=== PATIENT | female | born 1995 | race African-American/Black ===

== ENCOUNTER 2017-12-20 05:58 | Inpatient (IN) | payer MEDICAID ==
[~2017-12-20] VITALS: Ht 162.6 cm; Wt 68.0 kg
[2017-12-20] MEDS ORDERED: DEXT 5%/LR + PITOCIN 20UNITS/L 1,000 ML IV SCH ×2 (06:06→07:54)
[2017-12-20] MEDS ORDERED: METHYLERGONOVINE MALEATE 0.2 MG/ML IM PRN (06:15)
[2017-12-20] MEDS ORDERED: LIDOCAINE HCL 1% 20ML VIAL (Pyxis) INJ INFIL SCH (06:15)
[2017-12-20] MEDS ORDERED: DEXT 5%/LR + PITOCIN 20UNITS/L 1,000 ML IV ONE (06:19)
[2017-12-20] MEDS ORDERED: BUTORPHANOL TARTRATE 2 MG/ML VIAL IV NR (06:45)
[2017-12-20] MEDS ORDERED: LIDOCAINE HCL/PF 1% 10 MG/ML 5ML VIAL ONE (07:18)
[2017-12-20] MEDS ORDERED: NIFEDIPINE 10MG CAPSULE ONE (07:18)
[2017-12-20] MEDS ORDERED: PROPOFOL 200MG/20ML VIAL IV ONE ×3 (07:24→08:01)
[2017-12-20] MEDS ORDERED: OXYTOCIN 10 UNITS/ML 1ML ONE (07:39)
[2017-12-20 07:57] LABS: BASOPHILS % 0.2 % (0.0-2.0); EOSINOPHILS % 0.1 % (0.0-5.0); HEMATOCRIT. 32.4 % (36.0-48.0); HEMOGLOBIN. 10.9 g/dL (12.0-16.0); LYMPHOCYTES % 8.7 % (20.0-50.0); MEAN CORPUSCULAR HEMOGLOBIN 29.6 pg (28.0-32.0); MEAN CORPUSCULAR VOLUME 87.5 fL (81.0-99.0); MEAN PLATELET VOLUME 9.5 fl (7.4-10.4); MONOCYTES % 4.9 % (2.0-8.0); NEUTROPHILS % 86.1 % (40.0-76.0); PLATELET 104 x1000/uL (130-400); RED CELL DISTRIBUTION WIDTH 13.4 % (11.6-14.6)
[2017-12-20 08:00] LABS: CLARITY URINE CLEAR (CLEAR); COLOR URINE YELLOW (YELLOW); KETONES URINE NEGATIVE (NEGATIVE); LEUKOCYTE ESTERASE URINE NEGATIVE (NEGATIVE); NITRITE URINE NEGATIVE (NEGATIVE); OCCULT BLOOD URINE 1+ (NEGATIVE); PH URINE 6.5 (4.5-8.0); PROTEIN URINE NEGATIVE (NEGATIVE); SPECIFIC GRAVITY URINE 1.008 (1.005-1.030)
[2017-12-20] MEDS ORDERED: DIPHENHYDRAMINE 25MG CAPSULE PO PRN (08:00)
[2017-12-20] MEDS ORDERED: RHO(D) IMMUNE GLOBULIN 300 MCG/SYR IM PRN (08:00)
[2017-12-20] MEDS ORDERED: LANOLIN OINT 0.25 GM TUBE TOP PRN (08:00)
[2017-12-20] MEDS ORDERED: HEMORRHOIDAL SUPP PR PRN (08:00)
[2017-12-20] MEDS ORDERED: ACETAMINOPHEN WITH CODEINE 300/30MG TABLET PO PRN (08:00)
[2017-12-20] MEDS ORDERED: BENZOCAINE/LANOLIN/ALOE VERA SPRAY TOP PRN (08:00)
[2017-12-20] MEDS ORDERED: TETANUS, DIPHTHERIA, PERTUSSIS VAC/PF 0.5ML (>7YR OLD) IM ONE (08:00)
[2017-12-20] MEDS ORDERED: GLYCERIN/WITCH HAZEL LEAF MEDICATED PAD TOP PRN (08:00)
[2017-12-20 08:34] LABS: *AMPHETAMINES SCREEN URINE NEGATIVE (NEGATIVE); *BARBITURATES SCREEN URINE NEGATIVE (NEGATIVE); *BENZODIAZEPINES SCREEN URINE NEGATIVE (NEGATIVE); *COCAINE SCREEN URINE NEGATIVE (NEGATIVE)
[2017-12-20 08:35] LABS: CANNABINOID URINE SCREEN NEGATIVE (NEGATIVE); METHADONE URINE SCREEN NEGATIVE (NEGATIVE); OPIATES URINE SCREEN NEGATIVE (NEGATIVE); PHENCYCLIDINE URINE SCREEN NEGATIVE (NEGATIVE)
[2017-12-20 08:56] LABS: INR 0.9; PROTHROMBIN TIME 9.6 sec (9.4-11.6)
[2017-12-20] MEDS ORDERED: BISACODYL 10MG SUPP PR PRN (09:00)
[2017-12-20 10:18] LABS: HEPATITIS B SURFACE ANTIGEN NEGATIVE; RUBELLA IGG 80.3 IU/mL (4.99-10)
[2017-12-20 11:00] VITALS: BP 124/81
[2017-12-20 11:30] VITALS: BP 117/79
[2017-12-20] MEDS: MAGNESIUM/ALUMINUM HYDROXIDE/SIMETHICONE 30ML UDC PO SCH ×3 (13:52→21:37)
[2017-12-20] MEDS: SIMETHICONE 80MG TABLET CHEW PO SCH ×3 (13:52→21:38)
[2017-12-20] MEDS: PRENATAL VIT/FE FUMARATE/FA TABLET PO SCH (13:53)
[2017-12-20] MEDS: IBUPROFEN 400MG TABLET PO PRN (13:53)
[2017-12-20 19:15] VITALS: BP 119/75
[2017-12-20] MEDS: DOCUSATE SODIUM 100MG CAPSULE PO SCH (21:37)
[2017-12-20 23:15] VITALS: BP 122/78
[2017-12-21 07:36] VITALS: BP 105/66
[2017-12-21] MEDS: ACETAMINOPHEN WITH CODEINE 300/30MG TABLET PO PRN ×2 (07:45→16:41)
[2017-12-21] MEDS: PRENATAL VIT/FE FUMARATE/FA TABLET PO SCH (07:45)
[2017-12-21] MEDS: SIMETHICONE 80MG TABLET CHEW PO SCH ×4 (07:45→21:48)
[2017-12-21] MEDS: MAGNESIUM/ALUMINUM HYDROXIDE/SIMETHICONE 30ML UDC PO SCH ×4 (07:45→21:48)
[2017-12-21] MEDS: FERROUS SULFATE 325MG TABLET PO SCH ×2 (12:58→17:48)
[2017-12-21 16:12] VITALS: BP 116/58
[2017-12-21] MEDS: CLINDAMYCIN 300 MG in DEXTROSE 5% WATER 50 ML IV SCH ×2 (17:06→23:30)
[2017-12-21] MEDS: METRONIDAZOLE 500 MG PREMIX 100 ML IV SCH (17:48)
[2017-12-21 20:00] VITALS: BP 110/60
[2017-12-21] MEDS: DOCUSATE SODIUM 100MG CAPSULE PO SCH (21:48)
[2017-12-22] VITALS: BP 113/72
[2017-12-22] MEDS: IBUPROFEN 400MG TABLET PO PRN (00:05)
[2017-12-22] MEDS: METRONIDAZOLE 500 MG PREMIX 100 ML IV SCH ×2 (01:58→10:35)
[2017-12-22 07:30] VITALS: BP 106/65
[2017-12-22] MEDS: CLINDAMYCIN 300 MG in DEXTROSE 5% WATER 50 ML IV SCH (07:40)
[2017-12-22] MEDS: SIMETHICONE 80MG TABLET CHEW PO SCH (08:44)
[2017-12-22] MEDS: PRENATAL VIT/FE FUMARATE/FA TABLET PO SCH (08:44)
[2017-12-22] MEDS: MAGNESIUM/ALUMINUM HYDROXIDE/SIMETHICONE 30ML UDC PO SCH (08:44)
[2017-12-22] MEDS: FERROUS SULFATE 325MG TABLET PO SCH (08:44)
[2017-12-22 12:53] LABS: BASOPHILS % 0.2 % (0.0-2.0); EOSINOPHILS % 0.7 % (0.0-5.0); HEMATOCRIT. 32.4 % (36.0-48.0); LYMPHOCYTES % 20.1 % (20.0-50.0); MEAN CORPUSCULAR HEMOGLOBIN 29.2 pg (28.0-32.0); MEAN CORPUSCULAR VOLUME 85.9 fL (81.0-99.0); MEAN PLATELET VOLUME 9.2 fl (7.4-10.4); MONOCYTES % 6.4 % (2.0-8.0); NEUTROPHILS % 72.6 % (40.0-76.0); PLATELET 143 x1000/uL (130-400); RED BLOOD CELL COUNT 3.77 mill/uL (4.2-5.4); RED CELL DISTRIBUTION WIDTH 13.5 % (11.6-14.6)
== END 2017-12-22 13:21 | disposition home or self-care (01) | DRG 542 ==
LOC: OBSVTOIN 05:58 → L&D 05:58 → 7EST PP/OB 10:51
PROVIDERS: ADMIT Specialist; ATTEND Specialist
PROC: 0UQC7ZZ Repair Cervix, Via Natural or Artificial Opening (ICD-10-PCS; 2017-12-20)
PROC: 0HQ9XZZ Repair Perineum Skin, External Approach (ICD-10-PCS; 2017-12-20)
PROC: 0UQGXZZ Repair Vagina, External Approach (ICD-10-PCS; 2017-12-20)
PROC: 10E0XZZ Delivery of Products of Conception, External Approach (ICD-10-PCS; principal; 2017-12-20 05:45)
DX: O99.02 Anemia complicating childbirth (principal); O71.3 Obstetric laceration of cervix; D64.9 Anemia, unspecified; Z37.0 Single live birth; O70.0 First degree perineal laceration during delivery; Z3A.38 38 weeks gestation of pregnancy
CPT/HCPCS: 36415; 80305; 81003; 85025; 85610; 85730; 86592; 86703; 86762; 86850; 86900; 87340; J0595; J2590; J2704; J3490; J7060; J7120; A4315